=== PATIENT | female | born 1970 | race Caucasian/White ===

== ENCOUNTER 2017-07-24 20:16 | Emergency (ER) | payer OTHER ==
[~2017-07-24] VITALS: Ht 157.5 cm; Wt 86.5 kg
[2017-07-24 20:24] VITALS: BP 157/104; PULSE 104; RESP 18; TEMP 97.8; O2SAT 100
[2017-07-24 21:25] VITALS: BP 122/76; PULSE 91; RESP 18; O2SAT 97
[2017-07-24] MEDS ORDERED: SODIUM CHLOR 0.9% 1000 ML INJ 1,000 ML IV SCH (22:04)
--- NOTE | 2017-07-24 22:07 | PD ---
HPI Chief Complaint: Allergic/Adverse Reaction Time Seen by Provider: 22:04 Travel History International Travel<30 days: No Contact w/Intl Traveler<30days: No Traveled to known affect area: No History of Present Illness HPI 47-year-old female patient with history of allergic reaction to multiple medications, presents to the ER today because she states that she had taken Tylenol Sinus and Gas-X at 7:30 PM, about an hour later started having palpitations, felt like her throat was getting thick and tight, felt some mild shortness of breath, probably she was having an allergic reaction or some kind a adverse reaction. She states that the symptoms are now slowly subsiding. She has taken both medications multiple times in the past without issues. She denies any other new foods or medications. She denies any hives or other symptoms. Modifying Factors: None Associated Signs & Symptoms: Palpitations, feeling throat tight, shortness of breath Risk Factors: Allergic reaction to other medications PFSH Past Medical History Diminished Hearing: No Respiratory: Yes (Bronchitis) Pneumonia: Yes Tetanus Vaccination: > 5 Years Influenza Vaccination: No ?: Unknown LMP: TWO WEEKS AGO Past Surgical History Section: Yes (X2) Cholecystectomy: Yes Other Surgery: Yes (Breast reduction) Social History Alcohol Use: No Tobacco Use: No Substance Use: No Allergies-Medications (Allergen,Severity, Reaction): Coded Allergies: Penicillins (Verified Allergy, Severe, Rash, SOB, 07/24/17) carbamazepine (Verified Allergy, Severe, 07/24/17) ciprofloxacin (Verified Allergy, Severe, Anaphylaxis, 07/24/17) levofloxacin (Verified Allergy, Severe, Anaphylaxis, 07/24/17) Reported Meds & Prescriptions Reported Meds & Active Scripts Active Epinephrine Inj (Epinephrine) 0.15 Mg/0.3 Ml Inj 0.3 Mg IM DIRECTED Diphenhydramine (Diphenhydramine HCl) 25 Mg Cap 25 Mg PO Q6H PRN Review of Systems Except as stated in HPI: all other systems reviewed are Neg Physical Exam Narrative GENERAL: Well-developed middle age female patient currently mild distress. Awake and oriented 3. SKIN: Focused skin assessment warm/dry. No other care or rashes. HEAD: Atraumatic. Normocephalic. EYES: Pupils equal and round. No scleral icterus. No injection or drainage. ENT: No nasal bleeding or discharge. Mucous membranes pink and moist. Airway is intact. I do not see obvious signs of angioedema. NECK: Trachea midline. No JVD. CARDIOVASCULAR: Regular rate and rhythm. No murmur appreciated. RESPIRATORY: No accessory muscle use. Clear to auscultation. Breath sounds equal bilaterally. GASTROINTESTINAL: Abdomen soft, non-tender, nondistended. Hepatic and splenic margins not palpable. MUSCULOSKELETAL: No obvious deformities. No clubbing. No cyanosis. No edema. NEUROLOGICAL: Awake and alert. No obvious cranial nerve deficits. Motor grossly within normal limits. Normal speech. PSYCHIATRIC: Appropriate mood and affect; insight and judgment normal. Data Data Last Documented VS Vital Signs Date Time Temp Pulse Resp B/P (MAP) Pulse Ox O2 Delivery O2 Flow Rate FiO2 07/24/17 22:30 120 18 179/87 (117) 100 Room Air 07/24/17 20:24 97.8 Orders Orders Ecg Monitoring (07/24/17 22:04) Iv Access Insert/Monitor (07/24/17 22:04) Oximetry (07/24/17 22:04) Diphenhydramine Inj (Benadryl Inj) (07/24/17 22:15) Methylprednisolone So Succ Inj (Solumedr (07/24/17 22:15) Famotidine Inj (Pepcid Inj) (07/24/17 22:15) Sodium Chlor 0.9% 1000 Ml Inj (Ns 1000 M (07/24/17 22:04) Sodium Chloride 0.9% Flush (Ns Flush) (07/24/17 22:15) MDM Medical Decision Making Medical Screen Exam Complete: Yes Emergency Medical Condition: Yes Medical Record Reviewed: Yes Differential Diagnosis Allergic reaction versus anxiety attack versus adverse reaction Narrative Course Patient was given IV fluids, Benadryl, Solu-Medrol, and Zantac in the ER for what appears to have been allergic reaction. It is unknown whether it was due to the medications she took or something else. She has sensitivities to multiple medications before. After the medications were given, she started to report palpitations again. On evaluation, there are no signs of angioedema and she is not reporting any shortness of breath. However, she is mild tachycardic. Heart rate is in the 110. This point, there may be a anxiety component to her complaints as well, although steroid related anxiety as a side effect cannot be excluded in this case. I have offered to give her an anxiolytic but she is declining at this time. My plan would be to observe her in the ER for another hour and release. Physician Communication Physician Communication Case is signed out to Dr. Castillo at 11 PM pending reevaluation after observation. Diagnosis Primary Impression: Allergic reaction caused by a drug Med/Other Pt SpecificInfo: Prescription(s) given Scripts Epinephrine Inj (Epinephrine Inj) 0.15 Mg/0.3 Ml Inj 0.3 MG IM DIRECTED, #1 INJECTION 0 Refills Prov: Fermin Nguyen MD 07/24/17 Diphenhydramine (Diphenhydramine) 25 Mg Cap 25 MG PO Q6H Y for ALLERGIES, #15 CAP 0 Refills Prov: Fermin Nguyen MD 07/24/17 Disposition: 01 DISCHARGE HOME Condition: Stable Fermin Nguyen MD Jul 24, 2017 22:07
[2017-07-24] MEDS ORDERED: SODIUM CHLORIDE 0.9% FLUSH 10 ML FLUSH IV FLUSH PRN (22:15)
[2017-07-24] MEDS ORDERED: FAMOTIDINE 20 MG/2 ML VIAL IV PUSH ONE (22:15)
[2017-07-24] MEDS ORDERED: diphenhydrAMINE HCL 50 MG/ML VIAL IVP ONE (22:15)
[2017-07-24] MEDS ORDERED: methylPREDNISolone SOD SUCC 125 MG/2 ML VIAL IV PUSH ONE (22:15)
[2017-07-24 22:30] VITALS: BP 179/87; PULSE 120; RESP 18; O2SAT 100
[2017-07-24] MEDS ORDERED: DIPH25CA PO (22:42)
[2017-07-24] MEDS ORDERED: EPIN1INJ24 IM (22:42)
== END 2017-07-24 23:44 | disposition home or self-care (01) ==
LOC: PHED 20:16
DX: T78.40XA Allergy, unspecified, initial encounter (principal); T50.905A Adverse effect of unspecified drugs, medicaments and biological substances, initial encounter; X58.XXXA Exposure to other specified factors, initial encounter; Z88.0 Allergy status to penicillin; Z88.1 Allergy status to other antibiotic agents; Z88.8 Allergy status to other drugs, medicaments and biological substances
CPT/HCPCS: 96361; 96374; 96375; 99284; J1200; J2930; J7030

== ENCOUNTER 2017-07-28 18:14 | Observation (INO) | payer OTHER ==
[~2017-07-28 18:14] MED LIST: DIPH25CA PO; EPIN1INJ24 IM
[2017-07-28 18:15] VITALS: BP 140/88; PULSE 140; RESP 20; TEMP 102.3; O2SAT 97
[2017-07-28] MEDS ORDERED: SODIUM CHLOR 0.9% 1000 ML INJ 800 ML IV ONE (18:27)
[2017-07-28] MEDS ORDERED: SODIUM CHLOR 0.9% 1000 ML INJ 1,000 ML IV ONE (18:27)
--- NOTE | 2017-07-28 18:33 | PD ---
HPI Chief Complaint: tachycardia Time Seen by Provider: 18:21 Travel History International Travel<30 days: No Contact w/Intl Traveler<30days: No Traveled to known affect area: No History of Present Illness HPI 47-year-old female here for evaluation of tachycardia, upper respiratory symptoms, generalized malaise, generalized weakness. The patient reports that she was seen in the emergency department 4 days ago with similar symptoms, however she believes she may have been having a reaction to Tylenol cold/flu/ sinus. She was seen at an urgent care facility yesterday and was started on doxycycline or upper respiratory symptoms. States that today she has had slight shortness of breath and has noted that her heart rate is in the 140s. States that she feels some chest discomfort when her heart rate becomes elevated. She denies cough or hemoptysis. No known history of cardiac disease. No history of DVT or PE. No recent travel or immobilization. PFSH Past Medical History Diminished Hearing: No Respiratory: Yes (Bronchitis) Pneumonia: Yes Past Surgical History Section: Yes (X2) Cholecystectomy: Yes Other Surgery: Yes (Breast reduction) Social History Alcohol Use: No Tobacco Use: No Substance Use: No Allergies-Medications (Allergen,Severity, Reaction): Coded Allergies: Penicillins (Verified Allergy, Severe, Rash, SOB, 07/24/17) carbamazepine (Verified Allergy, Severe, 07/24/17) ciprofloxacin (Verified Allergy, Severe, Anaphylaxis, 07/24/17) levofloxacin (Verified Allergy, Severe, Anaphylaxis, 07/24/17) Reported Meds & Prescriptions Reported Meds & Active Scripts Active Reported Doxycycline Hyclate DR (Doxycycline Hyclate) 150 Mg Tab 150 Mg PO BID Review of Systems Except as stated in HPI: all other systems reviewed are Neg Physical Exam Narrative GENERAL: Well-developed, well-nourished, comfortable, no apparent distress. SKIN: Focused skin assessment warm/dry. HEAD: Atraumatic. Normocephalic. EYES: Pupils equal and round. No scleral icterus. No injection or drainage. ENT: Mucous membranes pink and moist. NECK: Trachea midline. No JVD. CARDIOVASCULAR: Tachycardic, rate 136, regular. RESPIRATORY: No accessory muscle use. Clear to auscultation. Breath sounds equal bilaterally. GASTROINTESTINAL: Abdomen soft, non-tender, nondistended. MUSCULOSKELETAL: No obvious deformities. No clubbing. No cyanosis. No edema. NEUROLOGICAL: Awake and alert. No obvious cranial nerve deficits. Motor grossly within normal limits. Normal speech. PSYCHIATRIC: Appropriate mood and affect; insight and judgment normal. Data Data Last Documented VS Vital Signs Date Time Temp Pulse Resp B/P (MAP) Pulse Ox O2 Delivery O2 Flow Rate FiO2 07/28/17 19:25 99.8 135 18 140/93 (109) 97 Room Air Orders Orders Sepsis Workup Initiated (07/28/17 ) Complete Blood Count With Diff (07/28/17 18:) Comprehensive Metabolic Panel (07/28/17) Beta Hcg (Quant/Titer) (07/28/17 18:) Prothrombin Time / Inr (Pt) (07/28/17) Act Partial Throm Time (Ptt) (07/28/17) Lactic Acid Sepsis Protocol (07/28/17 18) Lipase (07/28/17:) Ckmb (Isoenzyme) Profile (07/28/17) Troponin I (07/28/17) Urinalysis - C+S If Indicated (07/28/17 18:) Influenzae A/B Antigen (07/28/17 18:) Blood Culture (07/28/17:) Chest, Single Ap (07/28/17:) Ecg Monitoring (07/28/17:) Iv Access Insert/Monitor (07/28/17) Oximetry (07/28/17 18:) Oxygen Administration (07/28/17:) Sodium Chlor 0.9% 1000 Ml Inj (Ns 1000 M (07/28/17 18:) Sodium Chlor 0.9% 1000 Ml Inj (Ns 1000 M (07/28/17 18:) B-Type Natriuretic Peptide (07/28/17 18:29) Free Thyroxine (T4) (07/28/17 18:) Thyroid Stimulating Hormone (07/28/17 18:) Oseltamivir (Tamiflu) (07/28/17 20:00) Labs Laboratory Tests Test 07/28/17 18:35 White Blood Count 5.9 TH/MM3 Red Blood Count 4.88 MIL/MM3 Hemoglobin 14.4 GM/DL Hematocrit 44.3 % Mean Corpuscular Volume 90.6 FL Mean Corpuscular Hemoglobin 29.4 PG Mean Corpuscular Hemoglobin Concent 32.4 % Red Cell Distribution Width 13.3 % Platelet Count 180 TH/MM3 Mean Platelet Volume 8.0 FL Neutrophils (%) (Auto) 76.6 % Lymphocytes (%) (Auto) 10.2 % Monocytes (%) (Auto) 12.0 % Eosinophils (%) (Auto) 0.6 % Basophils (%) (Auto) 0.6 % Neutrophils # (Auto) 4.6 TH/MM3 Lymphocytes # (Auto) 0.6 TH/MM3 Monocytes # (Auto) 0.7 TH/MM3 Eosinophils # (Auto) 0.0 TH/MM3 Basophils # (Auto) 0.0 TH/MM3 CBC Comment DIFF FINAL Differential Comment Prothrombin Time 9.9 SEC Prothromb Time International Ratio 1.0 RATIO Activated Partial Thromboplast Time 26.4 SEC Urine Color YELLOW Urine Turbidity CLEAR Urine pH 7.5 Urine Specific [place] 1.020 Urine Protein TRACE mg/dL Urine Glucose (UA) NEG mg/dL Urine Ketones NEG mg/dL Urine Occult Blood MOD Urine Nitrite NEG Urine Bilirubin NEG Urine Leukocyte Esterase NEG Urine RBC 0-3 /hpf Urine WBC 0-2 /hpf Urine Squamous Epithelial Cells > 8 /hpf Microscopic Urinalysis Comment CATH-CULT NOT IND Blood Urea Nitrogen 7 MG/DL Creatinine 0.73 MG/DL Random Glucose 106 MG/DL Total Protein 7.8 GM/DL Albumin 3.6 GM/DL Calcium Level 9.0 MG/DL Alkaline Phosphatase 67 U/L Aspartate Amino Transf (AST/SGOT) 17 U/L Alanine Aminotransferase (ALT/SGPT) 28 U/L Total Bilirubin 0.4 MG/DL Sodium Level 135 MEQ/L Potassium Level 3.9 MEQ/L Chloride Level 101 MEQ/L Carbon Dioxide Level 25.3 MEQ/L Anion Gap 9 MEQ/L Estimat Glomerular Filtration Rate 85 ML/MIN Lactic Acid Level 1.1 mmol/L Total Creatine Kinase 26 U/L Troponin I LESS THAN 0.02 NG/ML B-Type Natriuretic Peptide 7 PG/ML Lipase 124 U/L Thyroid Stimulating Hormone 3rd Gen 1.870 uIU/ML Human Chorionic Gonadotropin, Quant LESS THAN 1 MIU/ML MDM Medical Decision Making Medical Screen Exam Complete: Yes Emergency Medical Condition: Yes Medical Record Reviewed: Yes Differential Diagnosis Sepsis, pneumonia, URI, influenza, PE, ACS Narrative Course Initial vital signs show heart rate 140, blood pressure 140/88, pulse ox 97% on room air, oral temp of 1.3F. CBC is essentially unremarkable. CMP is unremarkable. Cardiac enzymes are negative. Lactic acid is 1.1. BNP is 7. TSH is 1.87. Beta hCG is negative. UA is not suggestive of UTI. Chest x-ray: No acute cardio pulmonary disease. Influenza a positive. The patient was given 2 L normal saline IV and her heart rate remains elevated at 120s. She was also provided oral Tylenol and will be started on Tamiflu. Given persistent tachycardia, the patient will be admitted for overnight observation. Case discussed with hospitalist Dr. Macias who will admit the patient to the hospitalist service. Diagnosis Primary Impression: Influenza A Additional Impression: Sinus tachycardia Admitting Information Admitting Physician Requests: Observation Yomi Shetty MD Jul 28, 2017 18:33
[2017-07-28] MEDS ORDERED: DOXY150T6 PO (18:51)
[2017-07-28 18:54] VITALS: O2SAT 97
[2017-07-28 18:54] LABS: AUTOMATED NEUTROPHIL # 4.6 TH/MM3 (1.8-7.7); BASOPHIL % 0.6 % (0.0-2.0); EOSINOPHIL % 0.6 % (0.0-4.0); HEMATOCRIT 44.3 % (35.0-46.0); HEMOGLOBIN 14.4 GM/DL (11.6-15.3); LYMPH % 10.2 % (9.0-44.0); LYMPHOCYTE # 0.6 TH/MM3 (1.0-4.8); MEAN CELL VOLUME 90.6 FL (80.0-100.0); MEAN CORPUSCULAR HEMOGLOBIN 29.4 PG (27.0-34.0); MEAN CORPUSCULAR HGB CONC 32.4 % (32.0-36.0); MONOCYTE # 0.7 TH/MM3 (0-0.9); NEUT % 76.6 % (16.0-70.0); PLATELET COUNT 180 TH/MM3 (150-450); RED BLOOD COUNT 4.88 MIL/MM3 (4.00-5.30); RED CELL DISTRIBUTION WIDTH 13.3 % (11.6-17.2); WHITE BLOOD COUNT 5.9 TH/MM3 (4.0-11.0)
[2017-07-28 18:56] LABS: BILIRUBIN, URINE NEG (NEG); BLOOD, URINE MOD (NEG); GLUCOSE,URINE NEG (NEG); KETONE, URINE NEG (NEG); NITRITE,URINE NEG (NEG); PH, URINE 7.5 (5.0-8.5); URINE LEUKOCYTE ESTERASE NEG (NEG)
[2017-07-28 19:06] LABS: CHLORIDE 101 MEQ/L (98-107); SODIUM (NA) 135 MEQ/L (136-145)
[2017-07-28 19:11] LABS: ALBUMIN 3.6 GM/DL (3.4-5.0); BICARBONATE 25.3 MEQ/L (21.0-32.0); BLOOD UREA NITROGEN 7 MG/DL (7-18); GLUCOSE,RANDOM 106 MG/DL (74-106)
[2017-07-28 19:12] LABS: PROTHROMBIN TIME - PATIENT 9.9 SEC (9.8-11.6); URINE COLOR YELLOW (YELLW/STRAW)
[2017-07-28 19:13] LABS: ALT (GPT) 28 U/L (10-53); AST (GOT) 17 U/L (15-37); WBC, URINE 0-2 /hpf (0-5)
[2017-07-28 19:14] LABS: CREATININE 0.73 MG/DL (0.50-1.00); GLOMERULAR FILTRATION RATE 85 ML/MIN (>89); RBC, URINE 0-3 /hpf (0-3); SQUAMOUS EPITHELIAL CELL URINE > 8 /hpf (0-5)
[2017-07-28 19:15] LABS: TOTAL BILIRUBIN ADULT 0.4 MG/DL (0.2-1.0); TOTAL PROTEIN 7.8 GM/DL (6.4-8.2)
[2017-07-28 19:16] LABS: ALKALINE PHOSPHATASE 67 U/L (45-117)
[2017-07-28 19:19] LABS: TROPONIN I LESS THAN 0.02 NG/ML (0.02-0.05)
[2017-07-28 19:25] VITALS: BP 140/93; PULSE 135; RESP 18; TEMP 99.8; O2SAT 97
--- NOTE | 2017-07-28 19:25 | RADRPT ---
EXAM DATE/TIME: 07/28/2017 19:14 [facility] COMPARISON: No previous studies available for comparison. INDICATIONS : Weakness, irregular heart rate for 4 days MEDICAL HISTORY : None. SURGICAL HISTORY : None. ENCOUNTER: Initial ACUITY: 4 - 6 days PAIN SCORE: 0/10 LOCATION: Bilateral chest FINDINGS: The lungs are clear without infiltrate, nodule, or mass. There is no appreciable pleural effusion fo r technique. Heart and mediastinum are unremarkable. Large subacromial spur is seen bilaterally. CONCLUSION: No acute cardiopulmonary disease. Nyla Cuellar MD on July 28, 2017 at 19:23 Board Certified Radiologist. This report was verified electronically.
[2017-07-28] MEDS ORDERED: OSELTAMIVIR PHOSPHATE 75 MG CAP PO ONE (20:00)
[2017-07-28] MEDS ORDERED: NALOXONE HCL 0.4 MG/ML AMP IV PUSH PRN (20:15)
[2017-07-28] MEDS ORDERED: ACETAMINOPHEN 325 MG TAB PO ONE (20:15)
[2017-07-28] MEDS ORDERED: SODIUM CHLORIDE 0.9% FLUSH 10 ML FLUSH IV FLUSH PRN (20:15)
[2017-07-28 20:19] LABS: FREE T4 1.02 NG/DL (0.76-1.46)
[2017-07-28] MEDS: OSELTAMIVIR PHOSPHATE 75 MG CAP PO SCH (20:29)
[2017-07-28] MEDS: SODIUM CHLORIDE 0.9% FLUSH 10 ML FLUSH IV FLUSH SCH (20:30)
[2017-07-29 00:15] VITALS: BP 132/73; PULSE 107; RESP 20; TEMP 98.7; O2SAT 100
[2017-07-29 00:21] VITALS: PULSE 101
[2017-07-29] MEDS: IBUPROFEN 600 MG TAB PO PRN ×2 (02:55→08:28)
[2017-07-29 04:00] VITALS: BP 116/59; PULSE 98; RESP 20; TEMP 99.2; O2SAT 96
[2017-07-29 06:38] LABS: AUTOMATED NEUTROPHIL # 2.8 TH/MM3 (1.8-7.7); BASOPHIL % 0.6 % (0.0-2.0); EOSINOPHIL % 0.7 % (0.0-4.0); HEMATOCRIT 37.7 % (35.0-46.0); HEMOGLOBIN 12.8 GM/DL (11.6-15.3); LYMPH % 19.3 % (9.0-44.0); LYMPHOCYTE # 0.8 TH/MM3 (1.0-4.8); MEAN CELL VOLUME 90.7 FL (80.0-100.0); MEAN CORPUSCULAR HEMOGLOBIN 30.8 PG (27.0-34.0); MEAN PLATELET VOLUME 8.3 FL (7.0-11.0); MONO % 15.1 % (0.0-8.0); MONOCYTE # 0.7 TH/MM3 (0-0.9); NEUT % 64.3 % (16.0-70.0); PLATELET COUNT 148 TH/MM3 (150-450); RED BLOOD COUNT 4.16 MIL/MM3 (4.00-5.30); RED CELL DISTRIBUTION WIDTH 13.1 % (11.6-17.2); WHITE BLOOD COUNT 4.4 TH/MM3 (4.0-11.0)
[2017-07-29 07:13] LABS: BICARBONATE 24.1 MEQ/L (21.0-32.0); CALCIUM 8.2 MG/DL (8.5-10.1); CREATININE 0.43 MG/DL (0.50-1.00)
[2017-07-29 07:50] VITALS: BP 120/72; PULSE 88; RESP 20; TEMP 96.4; O2SAT 94
[2017-07-29] MEDS: SODIUM CHLORIDE 0.9% FLUSH 10 ML FLUSH IV FLUSH SCH (08:22)
[2017-07-29] MEDS: OSELTAMIVIR PHOSPHATE 75 MG CAP PO SCH (08:22)
[2017-07-29 12:00] VITALS: BP 128/76; PULSE 94; RESP 18; TEMP 97.9; O2SAT 98
[2017-07-29 12:02] VITALS: BP 128/76; PULSE 94; RESP 18; TEMP 97.9; O2SAT 98
[2017-07-29] MEDS ORDERED: OSEL75 PO (12:21)
--- NOTE | 2017-07-29 12:37 | HHI.PR ---
Addendum to Inpatient Note Additional Information Discharge patient to home Condition on discharge: Improved Regular Diet as tolerated Ad Makayla activity Rx written: Tamiflu Follow-up with primary care physician Kinga Martinez MD Jul 29, 2017 12:37
--- NOTE | 2017-07-29 12:37 | HHI.HP ---
HPI Service [facility] Primary Care Physician No Primary Care Physician Admission Diagnosis Influenza A, Sinus Tachycardia Diagnoses: Chief Complaint: Fast heartbeat, middle-age, upper respiratory symptom Travel History International Travel<30 Days: No Contact w/Intl Traveler <30 Da: No Traveled to Known Affected Are: No History of Present Illness 47 years old female presented to the ED last night complaining of palpitation tachycardia, nasal congestion and fever generalized weakness and aching, SHANTHI she was found to have positive influenza A, patient has had gone to ED 4 days ago she was prescribed doxycycline for possible sinusitis. In ED she was in heart rate 140 and fever 102, patient denied diarrhea productive cough, dysuria urgency or frequency Review of Systems All systems reviewed and was positive for what is mentioned in history of present illness otherwise negative Past Family Social History Past Medical History History of bronchitis and pneumonia in the past Past Surgical History Allergies: Coded Allergies: Penicillins (Verified Allergy, Severe, Rash, SOB, 07/24/17) carbamazepine (Verified Allergy, Severe, 07/24/17) ciprofloxacin (Verified Allergy, Severe, Anaphylaxis, 07/24/17) levofloxacin (Verified Allergy, Severe, Anaphylaxis, 07/24/17) Family History Review with the patient,not aware of significant medical history runs in his family Social History Denied tobacco alcohol or illicit drug abuse Physical Exam Vital Signs Vital Signs Date Time Temp Pulse Resp B/P (MAP) Pulse Ox O2 Delivery O2 Flow Rate FiO2 07/29/17 07:50 96.4 88 20 120/72 (88) 94 07/29/17 04:00 99.2 98 20 116/59 (78) 96 07/29/17 00:21 101 07/29/17 00:15 98.7 107 20 132/73 (92) 100 07/29/17 00:06 07/28/17 19:25 99.8 135 18 140/93 (109) 97 Room Air 07/28/17 18:54 97 Room Air 07/28/17 18:51 97 Room Air 07/28/17 18:15 102.3 140 20 140/88 (105) 97 Physical Exam GENERAL: This is a well-nourished, well-developed patient, in no apparent distress. SKIN: No rashes, warm and dry HEAD: Atraumatic. Normocephalic. EYES: Pupils equal round and reactive. Extraocular motions intact. No scleral icterus. ENT: Nose without bleeding, or drainage, Airway patent. NECK: Trachea midline. Supple CARDIOVASCULAR: Regular rate and rhythm without murmurs, gallops, or rubs. RESPIRATORY: Fair air entry bilaterally. No wheezes, rales, or rhonchi. GASTROINTESTINAL: Abdomen soft, non-tender, nondistended. Positive bowel sounds MUSCULOSKELETAL: Extremities without clubbing, cyanosis, or edema. Pedal pulses appreciated NEUROLOGICAL: Awake and alert. Moves all extremity. Normal speech.no focal neurological deficit Laboratory Laboratory Tests Test 07/28/17 18:35 07/29/17 05:32 White Blood Count 5.9 4.4 Red Blood Count 4.88 4.16 Hemoglobin 14.4 12.8 Hematocrit 44.3 37.7 Mean Corpuscular Volume 90.6 90.7 Mean Corpuscular Hemoglobin 29.4 30.8 Mean Corpuscular Hemoglobin Concent 32.4 34.0 Red Cell Distribution Width 13.3 13.1 Platelet Count 180 148 Mean Platelet Volume 8.0 8.3 Neutrophils (%) (Auto) 76.6 64.3 Lymphocytes (%) (Auto) 10.2 19.3 Monocytes (%) (Auto) 12.0 15.1 Eosinophils (%) (Auto) 0.6 0.7 Basophils (%) (Auto) 0.6 0.6 Neutrophils # (Auto) 4.6 2.8 Lymphocytes # (Auto) 0.6 0.8 Monocytes # (Auto) 0.7 0.7 Eosinophils # (Auto) 0.0 0.0 Basophils # (Auto) 0.0 0.0 CBC Comment DIFF FINAL DIFF FINAL Differential Comment Prothrombin Time 9.9 Prothromb Time International Ratio 1.0 Activated Partial Thromboplast Time 26.4 Urine Color YELLOW Urine Turbidity CLEAR Urine pH 7.5 Urine Specific [place] 1.020 Urine Protein TRACE Urine Glucose (UA) NEG Urine Ketones NEG Urine Occult Blood MOD Urine Nitrite NEG Urine Bilirubin NEG Urine Leukocyte Esterase NEG Urine RBC 0-3 Urine WBC 0-2 Urine Squamous Epithelial Cells > 8 Microscopic Urinalysis Comment CATH-CULT NOT IND Blood Urea Nitrogen 7 6 Creatinine 0.73 0.43 Random Glucose 106 102 Total Protein 7.8 Albumin 3.6 Calcium Level 9.0 8.2 Alkaline Phosphatase 67 Aspartate Amino Transf (AST/SGOT) 17 Alanine Aminotransferase (ALT/SGPT) 28 Total Bilirubin 0.4 Sodium Level 135 137 Potassium Level 3.9 3.5 Chloride Level 101 106 Carbon Dioxide Level 25.3 24.1 Anion Gap 9 7 Estimat Glomerular Filtration Rate 85 157 Lactic Acid Level 1.1 Total Creatine Kinase 26 Troponin I LESS THAN 0.02 B-Type Natriuretic Peptide 7 Lipase 124 Free Thyroxine 1.02 Thyroid Stimulating Hormone 3rd Gen 1.870 Human Chorionic Gonadotropin, Quant LESS THAN 1 Date/Time Source Procedure Growth Status 07/28/17 19:20 Blood Peripheral Aerobic Blood Culture - Preliminary NO GROWTH IN 1 DAY Resulted 07/28/17 19:20 Blood Peripheral Anaerobic Blood Culture - Preliminary NO GROWTH IN 1 DAY Resulted 07/28/17 18:35 Nasal Washing Influenza Types A,B Antigen (ASUNCION) - Final Positive For Flu A Antigen Complete Result Diagram: 07/29/17 0532 07/29/17 0532 Imaging Last Impressions Chest X-Ray 07/28/177 Signed Impressions: Service Date/Time: Friday, July 28, 2017 19:14 - CONCLUSION: No acute cardiopulmonary disease. Nyla Cuellar MD [place] VTE Risk Assessment Caprini VTE Risk Assessment: Mod/High Risk (score >= 2) Caprini Risk Assessment Model Point Value = 1 Point Value = 2 Point Value = 3 Point Value = 5 Age 41-60 Minor surgery BMI > 25 kg/m2 Swollen legs Varicose veins or History of unexplained or recurrent spontaneous Oral contraceptives or hormone replacement Sepsis (< 1 month) Serious lung disease, including pneumonia (< 1 month) Abnormal pulmonary function Acute myocardial infarction Congestive heart failure (< 1 month) History of inflammatory bowel disease Medical patient at bed rest Age 61-74 Arthroscopic surgery Major open surgery (> 45 min) Laparoscopic surgery (> 45 min) Malignancy Confined to bed (> 72 hours) Immobilizing plaster cast Central venous access Age >= 75 History of VTE Family history of VTE Factor V Leiden Prothrombin [id number] Lupus anticoagulant Anticardiolipin antibodies Elevated serum homocysteine Heparin-induced thrombocytopenia Other congenital or acquired thrombophilia Stroke (< 1 month) Elective arthroplasty Hip, pelvis, or leg fracture Acute spinal cord injury (< 1 month) Prophylaxis Regimen Total Risk Factor Score Risk Level Prophylaxis Regimen 0-1 Low Early ambulation 2 Moderate Order ONE of the following: *Sequential Compression Device (SCD) *Heparin 5000 units SQ BID 3-4 Higher Order ONE of the following medications: *Heparin 5000 units SQ TID *Enoxaparin/Lovenox 40 mg SQ daily (WT < 150 kg, CrCl > 30 mL/min) *Enoxaparin/Lovenox 30 mg SQ daily (WT < 150 kg, CrCl > 10-29 mL/min) *Enoxaparin/Lovenox 30 mg SQ BID (WT < 150 kg, CrCl > 30 mL/min) AND/OR *Sequential Compression Device (SCD) 5 or more Highest Order ONE of the following medications: *Heparin 5000 units SQ TID (Preferred with Epidurals) *Enoxaparin/Lovenox 40 mg SQ daily (WT < 150 kg, CrCl > 30 mL/min) *Enoxaparin/Lovenox 30 mg SQ daily (WT < 150 kg, CrCl > 10-29 mL/min) *Enoxaparin/Lovenox 30 mg SQ BID (WT < 150 kg, CrCl > 30 mL/min) AND *Sequential Compression Device (SCD) Assessment and Plan Assessment and Plan 47-year-old female admitted with upper respiratory symptoms, tachycardia and fever, found to be positive for Influenza A infection, IV dehydration, Tylenol , Tamiflu, no fever since last night, heart rate improved to 94 now, discussed with the patient explained that she will need to rest and increase her fluid oral intake with Tylenol and she really would discharge home today Discussed Condition With Patient, and her , Kinga Martinez MD Jul 29, 2017 12:37
== END 2017-07-29 14:11 | disposition home or self-care (01) ==
LOC: PHED 18:14 → PHEDA 20:05 → PH3B 07-29 00:02
PROVIDERS: ADMIT Hospitalist; ATTEND Hospitalist
DX: J10.1 Influenza due to other identified influenza virus with other respiratory manifestations (principal); R00.0 Tachycardia, unspecified; R06.02 Shortness of breath; R07.89 Other chest pain
CPT/HCPCS: 71045; 80048; 80053; 81001; 82550; 83605; 83690; 83880; 84439; 84443; 84484; 84702; 85025; 85610; 85730; 87040; 87804; 96360; 99285; G0378; J7030

== ENCOUNTER 2017-07-30 00:52 | Emergency (ER) | payer OTHER ==
[~2017-07-30] VITALS: Ht 157.5 cm; Wt 94.8 kg
[~2017-07-30 00:52] MED LIST changes: -DIPH25CA PO; +DOXY150T6 PO; -EPIN1INJ24 IM; +OSEL75 PO
[2017-07-30 00:55] VITALS: BP 183/90; PULSE 110; RESP 18; TEMP 98; O2SAT 100
[2017-07-30] MEDS ORDERED: SODIUM CHLOR 0.9% 1000 ML INJ 1,000 ML IV ONE (01:15)
[2017-07-30 01:27] VITALS: RESP 18; O2SAT 98
[2017-07-30 01:54] LABS: AUTOMATED NEUTROPHIL # 2.8 TH/MM3 (1.8-7.7); BASOPHIL % 0.7 % (0.0-2.0); EOSINOPHIL # 0.1 TH/MM3 (0-0.4); EOSINOPHIL % 2.4 % (0.0-4.0); HEMATOCRIT 39.9 % (35.0-46.0); HEMOGLOBIN 13.5 GM/DL (11.6-15.3); LYMPH % 23.7 % (9.0-44.0); LYMPHOCYTE # 1.1 TH/MM3 (1.0-4.8); MEAN CELL VOLUME 90.3 FL (80.0-100.0); MEAN CORPUSCULAR HEMOGLOBIN 30.6 PG (27.0-34.0); MEAN CORPUSCULAR HGB CONC 33.9 % (32.0-36.0); MEAN PLATELET VOLUME 7.6 FL (7.0-11.0); MONO % 12.1 % (0.0-8.0); MONOCYTE # 0.6 TH/MM3 (0-0.9); NEUT % 61.1 % (16.0-70.0); PLATELET COUNT 177 TH/MM3 (150-450); RED BLOOD COUNT 4.42 MIL/MM3 (4.00-5.30); RED CELL DISTRIBUTION WIDTH 13.1 % (11.6-17.2); WHITE BLOOD COUNT 4.7 TH/MM3 (4.0-11.0)
[2017-07-30 01:55] LABS: BILIRUBIN, URINE NEG (NEG); BLOOD, URINE MOD (NEG); GLUCOSE,URINE NEG (NEG); KETONE, URINE 15 mg/dL (NEG); NITRITE,URINE NEG (NEG); URINE LEUKOCYTE ESTERASE NEG (NEG)
[2017-07-30 02:01] LABS: SQUAMOUS EPITHELIAL CELL URINE 0-5 /hpf (0-5); URINE COLOR YELLOW (YELLW/STRAW); WBC, URINE 0-2 /hpf (0-5)
[2017-07-30 02:08] LABS: CHLORIDE 107 MEQ/L (98-107); SODIUM (NA) 138 MEQ/L (136-145)
[2017-07-30 02:09] VITALS: BP_SYST 141; BP_SYST 148; BP_SYST 166; BP_DIAS 90; BP_DIAS 92; RESP 12; RESP 14
[2017-07-30 02:11] LABS: ALBUMIN 3.2 GM/DL (3.4-5.0); BICARBONATE 23.3 MEQ/L (21.0-32.0); BLOOD UREA NITROGEN 10 MG/DL (7-18); CALCIUM 8.4 MG/DL (8.5-10.1); GLUCOSE,RANDOM 102 MG/DL (74-106); MAGNESIUM 2.1 MG/DL (1.5-2.5)
[2017-07-30 02:14] LABS: ALT (GPT) 23 U/L (10-53); AST (GOT) 18 U/L (15-37); CREATININE 0.52 MG/DL (0.50-1.00); GLOMERULAR FILTRATION RATE 126 ML/MIN (>89)
[2017-07-30 02:16] LABS: TOTAL BILIRUBIN ADULT 0.4 MG/DL (0.2-1.0); TOTAL PROTEIN 7.2 GM/DL (6.4-8.2)
[2017-07-30 02:17] LABS: ALKALINE PHOSPHATASE 61 U/L (45-117)
[2017-07-30 02:19] LABS: TROPONIN I LESS THAN 0.02 NG/ML (0.02-0.05)
--- NOTE | 2017-07-30 02:25 | PD ---
HPI Chief Complaint: Cardiac Complaint Time Seen by Provider: 01:15 Travel History International Travel<30 days: No Contact w/Intl Traveler<30days: No Traveled to known affect area: No History of Present Illness HPI 47-year-old female presents to the emergency department by private transportation in the care of her spouse for evaluation of palpitations. Patient was recently seen in the emergency department 07/28/17 was identified to have fever and tachycardia. Patient was also diagnosed with influenza and started on Tamiflu. After receiving IV fluids and resting overnight patient was discharged from the hospital on , 07/29/17 around 2 PM. Patient had nausea and was given medication for nausea and additional dose of Tamiflu. Upon a returning home patient felt nauseated and went to bed early. Patient reports just prior to arrival to the emergency department she had awakened from sleep with palpitations. Patient states that she thinks she counted her heart rate to be greater than 200. Patient states that she then awakened her and told him that she felt like she needed to come to the hospital because her heart was racing. Upon arrival to the emergency department patient reports that her heart rate has markedly decreased it has increased rate but still feels a little palpitations. Patient denies any fever for the past 12 hours. Patient continues to take Tamiflu. Patient denies any other concerns or complaints. No prior history of cardiac disease. Patient does have history of asthma and bronchitis but is does not report any shortness of breath. Status post cholecystectomy and . No tobacco use. PFSH Past Medical History Narrative Medical Asthma bronchitis cholecystectomy ; nursing notes reviewed Asthma: Yes Cancer: No Cardiovascular Problems: No Diminished Hearing: No Endocrine: No Genitourinary: No Immune Disorder: No Musculoskeletal: No Neurologic: No Psychiatric: No Reproductive: No Respiratory: Yes (Bronchitis) Pneumonia: Yes Tetanus Vaccination: < 5 Years Influenza Vaccination: No ?: Not LMP: 07/10/17 Past Surgical History Abdominal Surgery: Yes (gallbladder removed) Section: Yes (X2) Cholecystectomy: Yes Gynecologic Surgery: Yes (C-sections) Other Surgery: Yes (Breast reduction) Social History Alcohol Use: No Tobacco Use: No Substance Use: No Allergies-Medications (Allergen,Severity, Reaction): Coded Allergies: Penicillins (Verified Allergy, Severe, Rash, SOB, 07/30/17) carbamazepine (Verified Allergy, Severe, 07/30/17) ciprofloxacin (Verified Allergy, Severe, Anaphylaxis, 07/30/17) levofloxacin (Verified Allergy, Severe, Anaphylaxis, 07/30/17) Reported Meds & Prescriptions Reported Meds & Active Scripts Active Tamiflu (Oseltamivir Phosphate) 75 Mg Cap 75 Mg PO BID Reported Doxycycline Hyclate DR (Doxycycline Hyclate) 150 Mg Tab 150 Mg PO BID Review of Systems Except as stated in HPI: all other systems reviewed are Neg Physical Exam Narrative GENERAL: Well-developed female in no acute distress no respiratory distress SKIN: Warm and dry. HEAD: Normocephalic. EYES: No scleral icterus. No injection or drainage. NECK: Supple, trachea midline. No JVD or lymphadenopathy. CARDIOVASCULAR: Regular rate and rhythm without murmurs, gallops, or rubs. RESPIRATORY: Breath sounds equal bilaterally. No accessory muscle use. GASTROINTESTINAL: Abdomen soft, non-tender, nondistended. MUSCULOSKELETAL: No cyanosis, or edema. BACK: Nontender without obvious deformity. No CVA tenderness. Data Data Last Documented VS Vital Signs Date Time Temp Pulse Resp B/P (MAP) Pulse Ox O2 Delivery O2 Flow Rate FiO2 07/30/17 02:46 82 16 131/87 (102) 98 07/30/17 01:27 Room Air 07/30/17 00:55 98.0 Orders Orders Electrocardiogram (07/30/17 01:15) Complete Blood Count With Diff (07/30/17 01:15) Comprehensive Metabolic Panel (07/30/17 01:15) Magnesium (Mg) (07/30/17 01:15) Ckmb (Isoenzyme) Profile (07/30/17 01:15) Troponin I (07/30/17 01:15) Urinalysis - C+S If Indicated (07/30/17 01:15) Blood Glucose (07/30/17 01:15) Ecg Monitoring (07/30/17 01:15) Iv Access Insert/Monitor (07/30/17 01:15) Oximetry (07/30/17 01:15) Sodium Chlor 0.9% 1000 Ml Inj (Ns 1000 M (07/30/17 01:15) Orthostatic Vital Signs (07/30/17 01:15) Ed Discharge Order (07/30/17 02:47) Labs Laboratory Tests Test 07/30/17 01:45 White Blood Count 4.7 TH/MM3 Red Blood Count 4.42 MIL/MM3 Hemoglobin 13.5 GM/DL Hematocrit 39.9 % Mean Corpuscular Volume 90.3 FL Mean Corpuscular Hemoglobin 30.6 PG Mean Corpuscular Hemoglobin Concent 33.9 % Red Cell Distribution Width 13.1 % Platelet Count 177 TH/MM3 Mean Platelet Volume 7.6 FL Neutrophils (%) (Auto) 61.1 % Lymphocytes (%) (Auto) 23.7 % Monocytes (%) (Auto) 12.1 % Eosinophils (%) (Auto) 2.4 % Basophils (%) (Auto) 0.7 % Neutrophils # (Auto) 2.8 TH/MM3 Lymphocytes # (Auto) 1.1 TH/MM3 Monocytes # (Auto) 0.6 TH/MM3 Eosinophils # (Auto) 0.1 TH/MM3 Basophils # (Auto) 0.0 TH/MM3 CBC Comment DIFF FINAL Differential Comment Urine Color YELLOW Urine Turbidity CLEAR Urine pH 6.0 Urine Specific [place] 1.020 Urine Protein NEG mg/dL Urine Glucose (UA) NEG mg/dL Urine Ketones 15 mg/dL Urine Occult Blood MOD Urine Nitrite NEG Urine Bilirubin NEG Urine Leukocyte Esterase NEG Urine RBC 4-9 /hpf Urine WBC 0-2 /hpf Urine Squamous Epithelial Cells 0-5 /hpf Urine Bacteria NONE /hpf Microscopic Urinalysis Comment CULT NOT INDICATED Blood Urea Nitrogen 10 MG/DL Creatinine 0.52 MG/DL Random Glucose 102 MG/DL Total Protein 7.2 GM/DL Albumin 3.2 GM/DL Calcium Level 8.4 MG/DL Magnesium Level 2.1 MG/DL Alkaline Phosphatase 61 U/L Aspartate Amino Transf (AST/SGOT) 18 U/L Alanine Aminotransferase (ALT/SGPT) 23 U/L Total Bilirubin 0.4 MG/DL Sodium Level 138 MEQ/L Potassium Level 3.8 MEQ/L Chloride Level 107 MEQ/L Carbon Dioxide Level 23.3 MEQ/L Anion Gap 8 MEQ/L Estimat Glomerular Filtration Rate 126 ML/MIN Total Creatine Kinase 27 U/L Troponin I LESS THAN 0.02 NG/ML [facility] Medical Decision Making Medical Screen Exam Complete: Yes Emergency Medical Condition: Yes Medical Record Reviewed: Yes Interpretation(s) EKG: normal sinus rhythm rate [address] elevation injury pattern or ectopy noted Differential Diagnosis Palpitations, arrhythmia, electrolyte disturbance, myositis, pericarditis, viral syndrome, dehydration Narrative Course Patient placed on rn labor delivery with continuous pulse oximetry IV access obtained specimens collected and sent for resulting orthostatic measurements were obtained and patient was asymptomatic. Patient administered IV fluids EKG shows no acute injury pattern Lab values found to be in normal range Patient feels clinically improved vital signs are in normal range at this time patient encouraged to follow-up with her primary care provider increase fluid hydration including fluid such as flat Sprite flat marielos parul and Gatorade chicken rice and chicken noodle soup Jell-O. Patient is encouraged to monitor temperature and continue take antipyretics as needed for fever 100.4F or greater than encouraged to return the emergency department for any concerns or change in condition Diagnosis Primary Impression: Rapid palpitations Referrals: Primary Care Physician call for appointment Patient Instructions: General Instructions Additional Instructions: Increase fluid hydration Follow-up with your primary care provider Monitor temperature for fever and take as needed acetaminophen and/or ibuprofen Return to the emergency department for any concerns or change in condition Disposition: 01 DISCHARGE HOME Condition: Stable Frannie Porras MD Jul 30, 2017 02:25
[2017-07-30 02:46] VITALS: BP 131/87
--- NOTE | 2017-07-31 00:05 | EKG ---
Date Performed: 07/30/2017 Time Performed: 01:29:53 PTAGE: 47 years EKG: Sinus rhythm WITH SHORT UT INTERVAL BORDERLINE ECG NO PREVIOUS TRACING DOCTOR: Ruth Chavez Interpretating Date/Time 07/31/2017 00:03:49
== END 2017-07-30 03:03 | disposition home or self-care (01) ==
LOC: PHED 00:52
DX: R00.2 Palpitations (principal); R50.9 Fever, unspecified; R11.0 Nausea
CPT/HCPCS: 80053; 81001; 82550; 83735; 84484; 85025; 93005; 99284; J7030